=== PATIENT | male | born 1985 | race Caucasian/White ===

== ENCOUNTER 2017-01-12 19:56 | Emergency (ER) | payer SELFPAY ==
--- NOTE | 2017-01-12 20:47 | XRay Report ---
FINAL REPORT EXAM: XR WRIST 3 LT HISTORY: post fall left wrist pain TECHNIQUE: Left wrist two views PRIORS: None. FINDINGS: There is fracture through the mid to distal navicular. Fracture lines appear smooth and corticated. There are cystic and sclerotic changes distal pole of the navicular No additional acute bony abnormality seen. Distal radius and ulna are intact IMPRESSION: Navicular fracture. This appears chronic with probable posttraumatic changes at the distal pole.
--- NOTE | 2017-01-12 21:57 | Emergency Department Report ---
HPI - General Chief Complaint: Extremity Injury, Upper Time Seen by Provider: 01/12/17 21:38 - HPI HPI: 31-year-old male presents to ED complaining of falling about a week ago and hurt in his wrist. Patient states he fell tripped and fell on his left wrist. Patient states since then his pain. Patient states he fractured a hand about a week ago and was seen by another facility. Patient states he had a sprain place and sent this plan of 2 days ago. Patient states he now follows up with her orthopedic doctor. Patient denies loss of function or loss of sensation. He denies fevers/chills/nausea/vomiting/loss of sensation of hands/chest pain/ shortness of breath or any other problems. ED Past Medical Hx - Past Medical History Previous Medical History?: No - Surgical History Past Surgical History?: No - Social History Smoking Status: Current Every Day Smoker Substance Use Type: None - Medications Home Medications: Home Medications Medication Instructions Recorded Confirmed Last Taken Type Cyclobenzaprine [Flexeril 10 MG 10 mg PO QHS #20 tablet 01/12/17 Unknown Rx TAB] Ibuprofen [Motrin] 800 mg PO Q8HR PRN #30 tablet 01/12/17 Unknown Rx ED Review of Systems ROS: Stated complaint: L WRIST PAIN Other details as noted in HPI Constitutional: denies: chills, fever Eyes: denies: eye pain, eye discharge, vision change ENT: denies: ear pain, throat pain Respiratory: denies: cough, shortness of breath, wheezing Cardiovascular: denies: chest pain, palpitations Endocrine: no symptoms reported Gastrointestinal: denies: abdominal pain, nausea, diarrhea Genitourinary: denies: urgency, dysuria Musculoskeletal: myalgia. denies: back pain, joint swelling, arthralgia Skin: denies: rash, lesions Neurological: denies: headache, weakness, paresthesias Psychiatric: denies: anxiety, depression Hematological/Lymphatic: denies: easy bleeding, easy bruising Physical Exam - Physical Exam Vital Signs: Vital Signs 01/12/17 20:07 Temperature 98.2 F Pulse Rate 77 Respiratory 20 Rate Blood Pressure 107/63 O2 Sat by Pulse 99 Oximetry Physical Exam: GENERAL: Alert and oriented x3, no apparent distress, Normal Gait, atraumatic. HEAD: Head is normocephalic and a-traumatic. EYES: Extra ocular muscles are intact. Pupils are equal, round, and reactive to light and accommodation. LUNGS: Symetrical with respiration, No wheezing, no rales or crackles, CTAB. HEART: S1, S2 present, regular rate and rhythm without murmur, no rubs, no gallops. EXTREMITIES/MUSCULOSKELETAL: No cyanosis, clubbing, rash, lesions or edema. Full ROM bilaterally. UE Pulses 2+ bilaterally. LE and UE 5+ strength bilaterally, wrist joints are intact bilaterally. Tender to palpation of the wrist. None edema, nonerythematous, capillary refill 2+ SKIN: Warm and dry, No lesions, No ulceration or induration present. ED Course Vital Signs 01/12/17 20:07 Temperature 98.2 F Pulse Rate 77 Respiratory 20 Rate Blood Pressure 107/63 O2 Sat by Pulse 99 Oximetry ED Medical Decision Making - Radiology Data Radiology results: report reviewed, image reviewed FINAL REPORT EXAM: XR WRIST 3 LT HISTORY: post fall left wrist pain TECHNIQUE: Left wrist two views PRIORS: None. FINDINGS: There is fracture through the mid to distal navicular. Fracture lines appear smooth and corticated. There are cystic and sclerotic changes distal pole of the navicular No additional acute bony abnormality seen. Distal radius and ulna are intact IMPRESSION: Navicular fracture. This appears chronic with probable posttraumatic changes at the distal pole. Transcribed By: KAM Dictated By: AI WELCH MD Electronically Authenticated By: AI WELCH MD Signed Date/Time: 01/12/172041 - Medical Decision Making 31-year-old male presents with old navicular fracture. ED course: Patient received Toradol and Flexeril in ED Discussed the patient keep appointment with orthopedic doctor Velcro wrist splint given to patient. X-ray shows no acute process. Vital signs are normal patient is in no acute distress. Discussed this patient needs to follow-up with orthopedic doctor to be properly managed for his old fracture. Discussed fracture with a handlebar needs to be managed by orthopedic doctor Vital signs are normal patient is in no acute distress. he is alert and oriented 3 he had a second instructions given. Critical care attestation.: If time is entered above; I have spent that time in minutes in the direct care of this critically ill patient, excluding procedure time. ED Disposition Clinical Impression: Wrist pain, chronic Qualifiers: Laterality: left Qualified Code(s): M25.532 - Pain in left wrist Disposition: DISCHARGED TO HOME OR SELFCARE Is pt being admited?: No Does the pt Need Aspirin: No Condition: Stable Instructions: Wrist Injury (ED), Arthralgia (ED) Prescriptions: Cyclobenzaprine [Flexeril 10 MG TAB] 10 mg PO QHS #20 tablet Ibuprofen [Motrin] 800 mg PO Q8HR PRN #30 tablet PRN Reason: Pain Referrals: PRIMARY CARE, [Primary Care Provider] - 3-5 Days [facility] [Outside] - 3-5 Days [facility] [Outside] - 3-5 Days Forms: Accompanied Note, Work/School Release Form(ED) Time of Disposition: 22:18
[2017-01-12] MEDS ORDERED: TORADOL IM ONE (22:09)
[2017-01-12] MEDS ORDERED: FLEXERIL PO ONE (22:09)
[2017-01-12 22:45] VITALS: BP 111/69
== END 2017-01-12 23:12 | disposition home or self-care (01) ==
LOC: ED 19:56
DX: M25.532 Pain in left wrist (principal); G89.29 Other chronic pain; F17.200 Nicotine dependence, unspecified, uncomplicated; W19.XXXA Unspecified fall, initial encounter; Y93.89 Activity, other specified; Y99.9 Unspecified external cause status; Y92.89 Other specified places as the place of occurrence of the external cause
CPT/HCPCS: 29125; 73110; 96372; 99284; J1885

== ENCOUNTER 2017-02-17 22:04 | Emergency (ER) | payer SELFPAY ==
[2017-02-17 22:55] LABS: Bilirubin,Urine SM (Negative); Blood,Urine NEG (Negative); Ketones,Urine TR mg/dL (Negative); Leukocyte Esterase,Urine NEG (Negative); Mucus,Urine 3+ /HPF; Nitrite,Urine NEG (Negative)
[2017-02-17 23:22] LABS: Basophils % (Auto) 0.7 % (0.0-1.8); Hematocrit 30.9 % (35.5-45.6); Hemoglobin 10.2 gm/dl (11.8-15.2); Mean Corpuscular HGB Conc 33 % (32-34); Mean Corpuscular Hemoglobin 28 pg (28-32); Mean Corpuscular Volume 84 fl (84-94); Platelet Count 173 K/mm3 (140-440); Red Blood Count 3.69 M/mm3 (3.65-5.03); Red Cell Distribution Width 17.1 % (13.2-15.2); White Blood Count 12.5 K/mm3 (4.5-11.0)
[2017-02-17 23:53] LABS: Alanine Aminotransferase 14 units/L (7-56); Albumin 4.2 g/dL (3.9-5); Albumin/Globulin Ratio 1.1 %; Alkaline Phosphatase 53 units/L (35-129); Anion Gap 19 mmol/L; BUN/Creatinine Ratio 15.71; Blood Urea Nitrogen 11 mg/dL (9-20); Calcium 9.4 mg/dL (8.4-10.2); Carbon Dioxide 27 mmol/L (22-30); Chloride 96.9 mmol/L (98-107); Glucose 128 mg/dL (75-100); Lipase 12 units/L (13-60); Potassium 4.3 mmol/L (3.6-5.0); Sodium 139 mmol/L (137-145)
[2017-02-18] MEDS ORDERED: NACL 0.9% 1000 ML 1,000 ML IV ONE (00:18)
[2017-02-18] MEDS ORDERED: MORPHINE IV ONE (00:18)
[2017-02-18] MEDS ORDERED: ZOFRAN IV ONE (00:18)
[2017-02-18] MEDS ORDERED: PEPCID IV ONE (00:21)
--- NOTE | 2017-02-18 00:38 | Emergency Department Report ---
ED Abdominal Pain HPI - General Chief Complaint: Abdominal Pain Stated Complaint: NAUSEA,COUGH, SWEATS Time Seen by Provider: 02/18/17 00:10 Source: patient Mode of arrival: Ambulatory Limitations: No Limitations - History of Present Illness Initial Comments: 31-year-old male here with complaint of abdominal pain of worsening of the last 3 days. Complains of diffuse pain with some nausea and states he has been unable to keep anything down. He's had some mild diarrhea as well. Subjective chills and fever. Denies any known sick contacts. MD Complaint: abdominal pain Location: diffuse Radiation: none Migration to: no migration Severity scale (0 -10): 3 Improves With: nothing Worsens With: eating Associated Symptoms: denies other symptoms, nausea, vomiting, diarrhea - Related Data Home Medications Medication Instructions Recorded Confirmed Last Taken No Known Home Medications [No 02/18/17 02/18/17 Unknown Reported Home Medications] Previous Rx's Medication Instructions Recorded Last Taken Type Famotidine [Pepcid] 20 mg PO BID #60 tablet 02/18/17 Unknown Rx Ibuprofen [Motrin 600 MG tab] 600 mg PO Q8H PRN #30 tablet 02/18/17 Unknown Rx Ondansetron [Zofran Odt] 4 mg PO Q8HR #10 tab.rapdis 02/18/17 Unknown Rx Allergies Allergy/AdvReac Type Severity Reaction Status Date / Time No Known Allergies Allergy Verified 02/18/17 00:58 ED Review of Systems ROS: Stated complaint: NAUSEA,COUGH, SWEATS Other details as noted in HPI Comment: All other systems reviewed and negative Constitutional: chills Eyes: denies: eye pain ENT: denies: ear pain, throat pain Respiratory: denies: cough, orthopnea Cardiovascular: denies: chest pain, palpitations Gastrointestinal: abdominal pain, nausea, vomiting, diarrhea Neurological: headache. denies: weakness Psychiatric: denies: anxiety, depression ED Past Medical Hx - Past Medical History Previous Medical History?: No - Surgical History Past Surgical History?: No - Family History Family history: no significant - Social History Smoking Status: Current Every Day Smoker Substance Use Type: None - Medications Home Medications: Home Medications Medication Instructions Recorded Confirmed Last Taken Type Famotidine [Pepcid] 20 mg PO BID #60 tablet 02/18/17 Unknown Rx Ibuprofen [Motrin 600 MG tab] 600 mg PO Q8H PRN #30 tablet 02/18/17 Unknown Rx No Known Home Medications [No 02/18/17 02/18/17 Unknown History Reported Home Medications] Ondansetron [Zofran Odt] 4 mg PO Q8HR #10 tab.rapdis 02/18/17 Unknown Rx ED Physical Exam - General Limitations: No Limitations General appearance: alert, in no apparent distress - Head Head exam: Present: atraumatic, normocephalic - Eye Eye exam: Present: normal appearance - ENT ENT exam: Present: mucous membranes moist - Neck Neck exam: Present: normal inspection - Respiratory Respiratory exam: Present: normal lung sounds bilaterally. Absent: respiratory distress - Cardiovascular Cardiovascular Exam: Present: regular rate, normal rhythm. Absent: systolic murmur, diastolic murmur, rubs, gallop - GI/Abdominal GI/Abdominal exam: Present: soft, guarding (very mild), normal bowel sounds. Absent: rebound, rigid - Rectal Rectal exam: Present: deferred - Extremities Exam Extremities exam: Present: normal inspection - Back Exam Back exam: Present: normal inspection - Neurological Exam Neurological exam: Present: alert, oriented X3 - Psychiatric Psychiatric exam: Present: normal affect, normal mood - Skin Skin exam: Present: warm, dry, intact, normal color. Absent: rash ED Course Vital Signs 02/17/17 02/18/17 22:12 00:26 Temperature 98.6 F Pulse Rate 83 75 Respiratory 18 20 Rate Blood Pressure 126/84 111/63 [Right] O2 Sat by Pulse 99 100 Oximetry ED Medical Decision Making - Lab Data Result diagrams: 02/17/17 22:44 02/17/17 22:44 Laboratory Results - last 24 hr 02/17/17 02/17/17 02/17/17 22:26 22:44 22:44 WBC 12.5 H RBC 3.69 Hgb 10.2 L Hct 30.9 L MCV 84 MCH 28 MCHC 33 RDW 17.1 H Plt Count 173 Lymph % (Auto) 13.3 L [place] % (Auto) 8.7 H Eos % (Auto) 0.0 Baso % (Auto) 0.7 Lymph # 1.7 [place] # 1.1 H Eos # 0.0 Baso # 0.1 Seg Neutrophils % 77.3 H Seg Neutrophils # 9.7 H Sodium 139 Potassium 4.3 Chloride 96.9 L Carbon Dioxide 27 Anion Gap 19 BUN 11 Creatinine 0.7 L Estimated GFR > 60 BUN/Creatinine Ratio 15.71 Glucose 128 H Calcium 9.4 Total Bilirubin 1.10 AST 17 ALT 14 Alkaline Phosphatase 53 Total Protein 8.0 Albumin 4.2 Albumin/Globulin Ratio 1.1 Lipase 12 L Urine Color Ami Urine Turbidity Clear Urine pH 5.0 Ur Specific [place] 1.051 H Urine Protein 100 mg/dl Urine Glucose (UA) Neg Urine Ketones Tr Urine Blood Neg Urine Nitrite Neg Urine Bilirubin Sm Urine Ictotest Negative Urine Urobilinogen 4.0 Ur Leukocyte Esterase Neg Urine WBC (Auto) 3.0 Urine RBC (Auto) 11.0 Urine Mucus 3+ - Medical Decision Making Patient is a 31-year-old male here with complaint of abdominal pain nausea vomiting diarrhea. He has had these symptoms for the last 2 or 3 days. His abdominal exam is unremarkable. He appears mildly dehydrated. He is a known history of sickle cell trait. His white count is slightly elevated although he says that this is chronic for him. Labs otherwise unremarkable. Plan to discharge home with Zofran and Motrin and Pepcid. Portions of this chart were dictated with dictation software. There may be dictation errors contained within this note. Critical care attestation.: If time is entered above; I have spent that time in minutes in the direct care of this critically ill patient, excluding procedure time. ED Disposition Clinical Impression: Gastroenteritis, Nausea and vomiting Disposition: DC-01 TO HOME OR SELFCARE Is pt being admited?: No Does the pt Need Aspirin: No Condition: Stable Instructions: Gastroenteritis (ED) Prescriptions: Famotidine [Pepcid] 20 mg PO BID #60 tablet Ibuprofen [Motrin 600 MG tab] 600 mg PO Q8H PRN #30 tablet PRN Reason: Pain Ondansetron [Zofran Odt] 4 mg PO Q8HR #10 tab.rapdis Referrals: PRIMARY CARE, [Primary Care Provider] - 3-5 Days Forms: Work/School Release Form(ED)
[2017-02-18 01:51] VITALS: BP 110/60
== END 2017-02-18 01:52 | disposition home or self-care (01) ==
LOC: ED 22:04
DX: K52.9 Noninfective gastroenteritis and colitis, unspecified (principal); R11.2 Nausea with vomiting, unspecified; F17.200 Nicotine dependence, unspecified, uncomplicated
CPT/HCPCS: 36415; 80053; 81001; 83690; 85025; 96361; 96374; 96375; 99283; J2270; J2405; J7030